=== PATIENT | male | born 1980 | race Caucasian/White ===

== ENCOUNTER 2016-10-27 18:55 | Emergency (ER) | payer SELFPAY ==
[~2016-10-27 18:55] MED LIST: AMLODIPINE-BEN1 EAC9 PO; BYSTOLIC20 M1 PO; CITALOPRAM HBR40 M1 PO; FLUOXETINE HCL20 MG PO; GINSANA PO; HYDROCHLOROTHIA25 M1; HYDROCHLOROTHIA25 M1 PO; LISINOPRIL10 MG PO; OMEPRAZOLE20 M4 PO; OMEPRAZOLE40 MG PO; TOPROL XL25 M1 PO; VICODIN 5/500 T1 TAB PO; ZITHROMAX250MG Z-PAK PO
== END 2016-10-27 20:46 ==
LOC: EDMED 18:55
DX: M67.432 Ganglion, left wrist (principal); I10 Essential (primary) hypertension; J45.909 Unspecified asthma, uncomplicated; K21.9 Gastro-esophageal reflux disease without esophagitis; Z88.0 Allergy status to penicillin; F17.210 Nicotine dependence, cigarettes, uncomplicated